=== PATIENT | female | born 1985 | race Caucasian/White ===

== ENCOUNTER 2024-01-07 21:07 | Emergency (ER) | payer BC ==
[2024-01-08] MEDS ORDERED: Mag-Al 1200 mg/1200 mg/30 ML UDCUP ONE (03:25)
== END 2024-01-08 03:34 | disposition home or self-care (01) ==
LOC: ERS 21:07
DX: T18.128A Food in esophagus causing other injury, initial encounter (principal); K29.70 Gastritis, unspecified, without bleeding; F17.290 Nicotine dependence, other tobacco product, uncomplicated; W44.F3XA Food entering into or through a natural orifice, initial encounter
CPT/HCPCS: 71045